=== PATIENT | female | born 1995 | race Caucasian/White ===

== ENCOUNTER 2023-06-10 20:06 | Emergency (ER) | payer OTHER ==
[~2023-06-10] VITALS: Ht 154.9 cm; Wt 61.2 kg
[2023-06-10] MEDS ORDERED: ACETAMINOPHEN ES 500 MG TABLET ONE (22:31)
[2023-06-10] MEDS: ACETAMINOPHEN ES 500 MG TABLET PO ONE (22:32)
[2023-06-10 22:50] VITALS: BP 132/90; TEMP 98; O2SAT 99
== END 2023-06-10 22:50 | disposition home or self-care (01) ==
LOC: ER 20:12
DX: S52.121A Displaced fracture of head of right radius, initial encounter for closed fracture (principal); J45.909 Unspecified asthma, uncomplicated; Z60.2 Problems related to living alone; W01.0XXA Fall on same level from slipping, tripping and stumbling without subsequent striking against object, initial encounter; Y93.89 Activity, other specified; Y92.89 Other specified places as the place of occurrence of the external cause; Y99.8 Other external cause status
CPT/HCPCS: 73080-TC